=== PATIENT | female | born 1980 | race Caucasian/White ===

== ENCOUNTER → 2019-10-03 | Outpatient (CLI) | payer BC ==
--- NOTE | 2019-10-03 13:44 | KCIC ---
MR of the right knee HISTORY: Right knee pain after a fall on September 14. Previous ACL repair 2006. TECHNIQUE: Routine multiplanar sequences are obtained. FINDINGS: No evidence of medial or lateral meniscal tear. Anterior cruciate ligament has been reconstructed. The ligament demonstrates an ill-defined morphology with some buckling of anterior fibers suggesting at least partial tearing. No acute pivot shift bone injuries are identified. Posterior cruciate ligament intact. Medial collateral ligament intact. Iliotibial band unremarkable. Fibular collateral ligament, biceps femoris tendon and popliteus tendon are intact. Extensor mechanism is intact. No acute retinacular injury. Small amount of joint fluid. No significant Cole's cyst. Mild soft tissue edema around the fibular collateral ligament and conjoined tendon, but the structures are intrinsically intact. IMPRESSION: 1. Anterior cruciate ligament reconstruction is poorly defined with some buckling of anterior fibers, suspicious for at least a partial tear. Note the absence of acute pivot shift bone marrow contusions or large effusion, and this could be chronic. 2. Mild soft tissue edema or contusion about the lateral knee, without evidence of lateral tendon or ligament disruption. Electronically signed by: Deonte Anne MD (10/03/2019 1:41 PM) [id number]
== END | disposition home or self-care (01) ==
LOC: KCIC MRI 07:56
PROVIDERS: ATTEND Orthopaedic Surgery
DX: M25.561 Pain in right knee (principal); M79.89 Other specified soft tissue disorders
CPT/HCPCS: 73721